=== PATIENT | male | born 1960 ===

== ENCOUNTER 2017-08-03 13:19 | Day surgery (SDC) | payer OTHER ==
--- NOTE | 2017-08-03 12:38 | HP ---
History & Physical Update - History History: No Change - Physical Physical: No Change - Assessment Assessment: No Change - Plan Plan: No Change
[2017-08-03 12:41] VITALS: BMI 23.6
--- NOTE | 2017-08-03 12:41 | OP ---
Operative Note - Note: Operative Date: 08/03/17 Pre-Operative Diagnosis: prostate cancer Operation: prostate cryoablation and cystoscopy Findings: heterogeneous prostate Post-Operative Diagnosis: Same as Pre-op Surgeon: Darryl Sullivan Anesthesiologist/FITTING SUPERVISOR: Christie Freeman MD Anesthesia: General Estimated Blood Loss (mls): 0 Drains & Tubes with Location: 18 fr brito Operative Report Dictated: Yes
[2017-08-03] MEDS ORDERED: MIDAZOLAM HCL 2 MG/2 ML SINGLE DOSE VIAL ONE (14:18)
[2017-08-03] MEDS ORDERED: ceFAZolin SODIUM 1 GM VIAL IVPB ONE (14:20)
[2017-08-03] MEDS ORDERED: PROPOFOL 20 ML ONE (14:22)
[2017-08-03] MEDS ORDERED: ceFAZolin SODIUM 1 GM VIAL ONE (14:31)
[2017-08-03 17:05] VITALS: TEMP 97.8
[2017-08-03 17:57] VITALS: BP 149/82; PULSE 63
--- NOTE | 2017-08-04 07:28 | OP ---
DATE OF OPERATION: 08/03/2017 PREOPERATIVE DIAGNOSIS: Prostate cancer. POSTOPERATIVE DIAGNOSIS: Prostate cancer. PROCEDURE: Cystoscopy and prostate cryoablation. SURGEON: Darryl Sullivan MD COMMERCIAL HORTICULTURE INSTRUCTOR: None. ANESTHESIA: General via laryngeal mask. ANESTHESIOLOGIST: Christie Freeman MD SPECIMENS: None. CULTURES: None. DRAINS: An 18-Vincentian Rabago catheter. ESTIMATED BLOOD LOSS: None. COMPLICATIONS: None. DESCRIPTION OF PROCEDURE: The patient was brought into the operating room and placed on the operating room table in supine position. After administration of general sedation via laryngeal mask, intravenous antibiotics were administered. Sequential compression devices were placed. The patient was placed in the dorsal lithotomy position. The perineum was shaved, and the perineum and genitals were prepped and draped in the usual sterile manner. An 18-Vincentian Rabago catheter was placed per urethra. Then 10 mL was placed in the balloon. Bladder was filled with 200 mL of sterile normal saline and clamped. Now transperineal ultrasound-guided prostate cryoablation was done by first inserting the transrectal ultrasound probe and developing a plan. The tumor was only present on the right side of the prostate, so a focal cryoablation was done only ablating the right side of the prostate. Three probes were placed at the appropriate locations. The depths of penetration into the prostate were confirmed, and now the Rabago catheter was removed. Flexible cystoscopy was done and demonstrated the probes had not penetrated the urethra or the bladder. The bladder was left full, and a Super Stiff guidewire was passed. Now the urethra warmer was inserted over the guidewire. Now, two freeze/thaw cycles were done with excellent results. Rbaago catheter was replaced after removing the urethra warmer. A sterile compressive dressing was placed on the perineum. Hemostasis was adequate. He tolerated the procedure well and transferred to recovery in stable condition. Angel [id number]
== END 2017-08-03 17:30 | disposition home or self-care (01) ==
LOC: JASU-SURG 13:19
PROVIDERS: ATTEND Urology
PROC: 0V507ZZ Destruction of Prostate, Via Natural or Artificial Opening (ICD-10-PCS; principal; 2017-08-03 13:00)
DX: C61 Malignant neoplasm of prostate (principal)
CPT/HCPCS: 55873; C2618